=== PATIENT | female | born 1965 | race Caucasian/White ===

== ENCOUNTER 2023-07-14 16:39 | Emergency (ER) | payer MEDICAID ==
[~2023-07-14] VITALS: Ht 152.4 cm; Wt 77.0 kg
[2023-07-14 17:21] VITALS: O2SAT 100
[2023-07-14 18:10] LABS: BASOPHILS % 0.8 % (0.0-2.0); EOSINOPHILS % 4.6 % (0.0-5.0); HEMATOCRIT. 38.1 % (36.0-48.0); HEMOGLOBIN. 12.8 g/dL (12.0-16.0); LYMPHOCYTES % 38.2 % (20.0-50.0); MEAN CORPUSCULAR HEMOGLOBIN 28.6 pg (28.0-32.0); MEAN CORPUSCULAR HGB CONC 33.6 g/dL (31.0-37.0); MEAN CORPUSCULAR VOLUME 85.1 fL (81.0-99.0); MEAN PLATELET VOLUME 10.5 fl (7.4-10.4); MONOCYTES % 6.5 % (2.0-8.0); NEUTROPHILS % 49.9 % (40.0-76.0); PLATELET 177 x1000/uL (130-400); RED BLOOD CELL COUNT 4.48 mill/uL (4.2-5.4); RED CELL DISTRIBUTION WIDTH 13.4 % (11.6-14.6); WHITE BLOOD COUNT 8.4 x1000/uL (4.5-11.0)
[2023-07-14 18:16] LABS: CHLORIDE 108 mEq/L (98-107); SODIUM 141 mEq/L (136-145)
[2023-07-14 18:17] LABS: CALCIUM 9.7 mg/dL (8.7-10.4); CARBON DIOXIDE 31 mEq/L (21-32)
[2023-07-14 18:22] LABS: CREATININE 0.7 mg/dL (0.6-1.0); GLUCOSE 93 mg/dL (70-105); UREA NITROGEN BLOOD 13 mg/dL (9-23)
[2023-07-14 18:24] LABS: ALANINE AMINOTRANSFERASE 51 IU/L (10-49); ALBUMIN 4.1 g/dL (3.2-4.8); ASPARTATE AMINOTRANSFERASE 29 IU/L (<34)
[2023-07-14 18:25] LABS: BILIRUBIN DIRECT < 0.1 mg/dL (<=3.0); BILIRUBIN TOTAL 0.3 mg/dL (0.1-1.0); PROTEIN TOTAL 6.7 g/dL (6.0-8.3)
[2023-07-14 18:27] LABS: HCG SCREEN NEGATIVE
[2023-07-14 18:29] LABS: CLARITY URINE CLEAR (CLEAR); COLOR URINE YELLOW (YELLOW); GLUCOSE URINE NEGATIVE (NEGATIVE); KETONES URINE NEGATIVE (NEGATIVE); LEUKOCYTE ESTERASE URINE 1+ (NEGATIVE); NITRITE URINE POSITIVE (NEGATIVE); OCCULT BLOOD URINE NEGATIVE (NEGATIVE); PH URINE 5.5 (4.5-8.0); PROTEIN URINE NEGATIVE (NEGATIVE); UROBILINOGEN URINE 0.2 E.U./dL (0.2-1.0)
[2023-07-14 18:41] LABS: BACTERIA URINE 1+; RBC URINE 0-2 /hpf (0-2); SQUAMOUS EPITHELIAL CELL URINE 1+ /lpf (RARE/1+)
[2023-07-14 18:44] LABS: TROPONIN I HIGH SENSITIVITY < 4 ng/L (3.0-34)
[2023-07-14 23:40] VITALS: BP 142/82; PULSE 98; RESP 12; TEMP 98.8
[2023-07-14] MEDS: ACETAMINOPHEN 500MG TABLET PO NR (23:40)
[2023-07-14] MEDS: KETOROLAC 60MG/2ML VIAL IM NR (23:40)
[2023-07-14] MEDS ORDERED: SULF1TAB48 MT (23:44)
== END 2023-07-15 01:00 | disposition home or self-care (01) ==
LOC: ER 16:39
DX: N39.0 Urinary tract infection, site not specified (principal); I49.9 Cardiac arrhythmia, unspecified; Z98.890 Other specified postprocedural states
CPT/HCPCS: 99284; 80076; 80048; 81003; 81025; 84703; 83690; 85025; 85651; 84484; 36415; 93005; 96372; J1885